=== PATIENT | male | born 1990 | race Caucasian/White ===

== ENCOUNTER 2025-01-21 18:09 | Emergency (ER) | payer OTHER, SELFPAY ==
[2025-01-21 18:21] VITALS: BP 149/71; PULSE 97; RESP 16; TEMP 36.9; O2SAT 96
--- NOTE | 2025-01-21 18:23 | ED_ITS ---
HPI - Skin/Abscess/Foreign Bdy General Chief complaint: Skin/Abscess/Foreign Body Stated complaint: Bump Top Of Butt Time Seen by Provider: 01/21/25 18:23 Source: patient, RN notes reviewed and old records reviewed Mode of arrival: ambulatory Limitations: no limitations History of Present Illness HPI narrative: Her 4-year-old male presents to the [facility] with complaints of a ?bump? to the upper posterior gluteal cleft. States been going on a week, red and tender. States that he wiped this morning and there was a lot of pus. Tenderness to palpation noted. Onset (ago): week(s) (1) Location: buttocks Treatments prior to arrival: none Related Data Allergies Allergy/AdvReac Type Severity Reaction Status Date / Time morphine Allergy Anaphylaxis Verified 01/21/25 18:39 Review of Systems 2 Review of Systems: All systems reviewed & are unremarkable except as noted in HPI and below Constitutional: Constitutional: Reports no additional constitutional complaints Cardiovascular: Cardiovascular: Reports no additional cardiovascular complaints, Denies chest pain and Denies dyspnea Respiratory: Respiratory: Reports no additional respiratory complaints, Denies chest congestion, Denies cough and Denies dyspnea Musculoskeletal: Musculoskeletal: Reports no additional musculoskeletal complaints Integumentary/Breasts: Skin/Breast: Reports as per HPI PMFSH Comments At the time of my signature, I reviewed and agree with the nursing past medical, surgical, social, and family history. There is no relevant family history pertinent to the patient complaint. Exam 2 Const: General: cooperative, healthy appearing, comfortable, no acute distress, well developed, alert and well nourished Nutritional Appearance: w ell nourished and obese Orientation/consciousness: patient oriented x3 L imitations: no limitations HENMT: Head: normal to inspection Eyes: General: appearance normal, both eyes and all related structures A lignment and Position: alignment normal Neck: Neck: normal visual inspection, full ROM, no lymphadenopathy and no meningeal signs Chest: Chest palpation & inspection: normal inspection of the chest Resp: Effort & Inspection: normal respiratory effort and able to speak in complete sentences Cardio: Rate: regular rate Skin: General skin exam: normal color and no rashes or lesions noted Full body images: 1. Red warm area without fluctuance, no drainage noted at this time. Neuro: General: patient oriented x3, gait normal, moves all extremities and no meningeal signs Cognition (Neuro): normal cognition Speech: normal speech Gait exam (Neuro): Normal gait present Extrem: General: normal to inspection, full ROM, capillary refill normal and normal gait Psych: Appearance: grossly normal and well kempt Mental Status: mental status grossly normal Speech and movement: Normal speech and movement present and Clear speech present Affect: normal affect Attitude: cooperative Course Course Level of Care: Express Care Visit Vital Signs Vital signs: Vital Signs Temperature 98.4 F 01/21/25 18:21 Pulse Rate 97 01/21/25 18:21 Respiratory Rate 16 01/21/25 18:21 Blood Pressure 149/71 H 01/21/25 18:21 Pulse Oximetry 96 01/21/25 18:21 Oxygen Delivery Room Air 01/21/25 18:21 Temperature 98.4 F 01/21/25 18:21 Pulse Rate 97 01/21/25 18:21 Respiratory Rate 16 01/21/25 18:21 Blood Pressure 149/71 H 01/21/25 18:21 Pulse Oximetry 96 01/21/25 18:21 Oxygen Delivery Room Air 01/21/25 18:21 Reviewed MDM - Skin/Abscess/Foreign Bdy MDM Narrative Medical decision making narrative: Patient sitting in exam patient is nontoxic, vitals are stable. Presents with significant other. Patient reports increasing of pain, redness to the posterior gluteal cleft most likely this was a pilonidal cyst that has already drained. Has some surrounding cellulitic changes, will cover with an antibiotic. No culture collected due to no drainage at this time. Patient is appropriate for outpatient treatment with close follow-up. Discussed in great detail signs and symptoms to proceed to the emergency room which she verbalized and so did significant other verbalized understanding. Discharge instructions reviewed with patient, as well as provided in writing per nursing staff. The instructions also include specific and strict return/GO TO THE ER as well as f/u information. All questions have been answered, and the patient deny any further questions with discharge and discharge plan. Some parts of this dictation were generated by voice recognition software and may contain typographical and/or grammatical inaccuracies. Differential Diagnosis Differential diagnosis: Likely abscess of skin or subcutaneous tissue, cellulitis and impetigo Critical Care Time Critical Care Time Critical Care Time: No Discharge Plan Discharge Clinical Impression: Cellulitis Qualifiers: Site of cellulitis: buttock Qualified Code(s): L03.317 - Cellulitis of buttock Patient Disposition: Home Condition: Stable Instructions: Pilonidal Cyst (ED), Cellulitis (ED) Additional Instructions: Keep area clean and dry. Take antibiotic as prescribed follow-up with primary care provider For new or worsening symptoms go directly to the emergency room Patient Language: Montenegrin Prescriptions: New sulfamethoxazole-trimethoprim [Bactrim DS] 800-160 mg tablet 1 tablet PO Q12H Qty: 14 0RF sulfamethoxazole-trimethoprim [Bactrim DS] 800-160 mg tablet 1 tablet PO Q12H Qty: 14 0RF Follow-up/Referrals: PHYSICIAN,CHANNEL DEVELOPMENT MANAGER [Primary Care Provider, Internal Medicine] Time of Disposition: 18:43
== END 2025-01-21 18:51 | disposition home or self-care (01) ==
PROVIDERS: Emergency Provider Nurse Practitioner
DX: L03.317 Cellulitis of buttock (principal)
CPT/HCPCS: 99203; G0463